=== PATIENT | female | born 1960 | race Caucasian/White ===

== ENCOUNTER 2017-11-04 00:47 | Emergency (ER) | payer MEDICARE, OTHER ==
[~2017-11-04] VITALS: Ht 170.2 cm; Wt 47.0 kg
[2017-11-04 02:08] VITALS: BP 184/113
[2017-11-04] MEDS ORDERED: NO HOME MEDS (14:41)
[2017-11-05] MEDS ORDERED: LISI-600 PO (11:28)
== END 2017-11-04 02:12 | disposition home or self-care (01) ==
LOC: ER 00:48
DX: S60.221A Contusion of right hand, initial encounter (principal); Z88.8 Allergy status to other drugs, medicaments and biological substances; X58.XXXA Exposure to other specified factors, initial encounter; Y93.89 Activity, other specified; Y92.89 Other specified places as the place of occurrence of the external cause; Y99.8 Other external cause status
CPT/HCPCS: 73130; 99284; A4565; A6449

== ENCOUNTER 2022-02-21 08:12 | Emergency (ER) | payer MEDICARE ==
[~2022-02-21] VITALS: Ht 170.2 cm; Wt 40.9 kg
[~2022-02-21 08:12] MED LIST: LISI20TA28 PO
[2022-02-21] MEDS: folic acid 1mg tablet PO SCH ×2 (10:40→19:42)
--- NOTE | 2022-02-21 11:00 | NUR ---
BP 196/128. RN notified provider (Daniele). MD aware, awaiting medical records from [facility].
[2022-02-21 11:13] LABS: HEMOGLOBIN 12.4 g/dl (12.0-16.0); LYMPHOCYTES # (AUTO) 1.1 X10'3 (1.1-4.8); LYMPHOCYTES % (AUTO) 13.9 % (21-51); MEAN CORPUSCULAR VOLUME 90.5 FL (78-98); MONOCYTES # (AUTO) 0.6 X10'3 (0-0.9); MONOCYTES % (AUTO) 7.6 % (2-12)
[2022-02-21 11:14] LABS: BASOPHILS % (AUTO) 0.5 % (0-1); EOSINOPHILS % (AUTO) 0.6 % (0-6); MEAN CORPUSCULAR HEMOGLOBIN 29.5 PG (27.0-31.0); MEAN CORPUSCULAR HGB CONC 32.6 g/dL (33.0-36.5); NEUTROPHILS # (AUTO) 5.9 X10'3 (1.8-7.7); NEUTROPHILS % (AUTO) 77.4 % (42-75); PLATELET COUNT 143 X10'3 (140-440); RED CELL DISTRIBUTION WIDTH 14.9 % (11.5-14.5); WHITE BLOOD COUNT 7.7 X10'3 (4.5-11.0)
[2022-02-21 11:26] LABS: ALANINE AMINOTRANSFERASE 62 U/L (12-78); ALBUMIN 3.4 G/DL (3.4-5.0); ALBUMIN/GLOBULIN RATIO 1.1 (1.1-1.5); ALKALINE PHOSPHATASE 204 IU/L (46-116); ANION GAP 10 (8-16); ASPARTATE AMINO TRANSFERASE 34 U/L (10-37); BILIRUBIN,TOTAL 0.4 MG/DL (0.1-1.0); BLOOD UREA NITROGEN 6 MG/DL (7-18); BUN/CREATININE RATIO 9.5 (6.6-38.0); CALCIUM 8.9 MG/DL (8.5-10.1); CHLORIDE 107 MMOL/L (99-107); CREATININE 0.63 MG/DL (0.40-0.90); ETHANOL < 0.010 GM/DL (0.0-0.010); GLUCOSE 103 MG/DL (70-104); LARGE PLATELETS MODERATE; PLATELET ESTIMATE DECREASED; POTASSIUM 3.1 MMOL/L (3.5-5.1); SODIUM 144 MMOL/L (135-145); TOTAL CARBON DIOXIDE 26.6 MMOL/L (24-32); TOTAL PROTEIN 6.6 G/DL (6.4-8.2); eGFR > 90 ML/MIN
--- NOTE | 2022-02-21 11:26 | NUR ---
pt brought from main ER to [facility], pt was placed in room 24
[2022-02-21] MEDS: thiamine 100mg tablet PO SCH (11:30)
[2022-02-21] MEDS ORDERED: potassium Cl 20 mEq SR tablet PO STA (11:43)
[2022-02-21] MEDS ORDERED: LORazepam 1 MG tablet PO ONE ×2 (13:35→22:55)
[2022-02-21 16:03] LABS: URINE HCG NEGATIVE (NEG)
[2022-02-21 16:09] LABS: URINE AMPHETAMINE SCREEN NEGATIVE (Neg); URINE BARBITUATE SCREEN NEGATIVE (Neg); URINE BENZODIAZEPINES SCREEN NEGATIVE (Neg); URINE CANNABINOID SCREEN POSITIVE (Neg); URINE COCAINE SCREEN NEGATIVE (Neg); URINE METHADONE SCREEN NEGATIVE (Neg); URINE OPIATE SCREEN NEGATIVE (Neg); URINE PHENCYCLIDINE SCREEN NEGATIVE (Neg)
[2022-02-21] MEDS: lisinopril 10 MG tablet PO SCH (17:26)
--- NOTE | 2022-02-21 17:36 | NUR ---
tech took pt vitals, upon vitals pt had a high blood pressure, RN of pt was informed
[2022-02-21 18:37] LABS: CLARITY,URINE CLEAR (Clear); COLOR,URINE YELLOW (Yellow); GLUCOSE, URINE 100 mg/dl (Neg); KETONES,URINE NEGATIVE (Neg); LEUKOCYTE ESTERASE ,URINE NEGATIVE (Neg); NITRITES, URINE NEGATIVE (Neg); OCCULT BLOOD,URINE NEGATIVE (Neg); PH,URINE 7.5 (4.8-8.0); PROTEIN,URINE NEGATIVE (Neg); UA COLLECTION TYPE VOIDED; UROBILINOGEN,URINE 0.2 E.U/dL (0.2-1.0)
[2022-02-21] MEDS ORDERED: ibuprofen tablet 400 MG TABLET PO ONE (19:25)
--- NOTE | 2022-02-21 19:26 | NUR ---
pt c/o pain in legs, notifed of c/o pain and bp 185/90, order for Motrin 600mg po given
[2022-02-21] MEDS ORDERED: ibuprofen 200mg tablet PO ONE (19:30)
--- NOTE | 2022-02-21 20:45 | NUR ---
pt requesting something for pain again, pt advised again that she has recived something, pt again states that I have gave her nothing, unable to reorient pt, pt beligerent, talking to self
--- NOTE | 2022-02-21 21:12 | NUR ---
pt trying to walk to back of unit, no following directions at this time, pt was able to redirect back to bed but still agitated and rocking in bed
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
--- NOTE | 2022-02-21 21:40 | NUR ---
pt spitting and cursing staff at this time.
[2022-02-21] MEDS ORDERED: Melatonin 3mg tablet PO SCH (22:55)
--- NOTE | 2022-02-22 03:40 | NUR ---
Gin tirado in JENNIFER - 02/22/22 at 0342 by KAT Patient is sleeping quietly now. No distress.
[2022-02-22] MEDS ORDERED: nicotine 21mg patch - 24 hr TD ONE (07:40)
[2022-02-22] MEDS: folic acid 1mg tablet PO SCH ×2 (08:00→20:08)
[2022-02-22] MEDS: thiamine 100mg tablet PO SCH (08:00)
[2022-02-22] MEDS: lisinopril 10 MG tablet PO SCH (08:00)
[2022-02-22] MEDS ORDERED: LORazepam 2 mg/ml vial IM ONE (10:05)
--- NOTE | 2022-02-22 14:00 | NUR ---
Patient eloped from ED without notifying staff. Patient was returned by [employer] apporx 30 minutes after leaving facility. No complaints of injuries upon return to ED room 24.
[2022-02-22] MEDS ORDERED: OLANZapine 5mg rapidly disint. tablet PO ONE (16:30)
--- NOTE | 2022-02-22 17:28 | NUR ---
"Playing jelly beans with myself and eating chicken". Patient given Zyprexa 5 mg P.O. Patient is disorganized and delusional. Patient picks up on words a family member of another patient was saying and yells something strange out. Patient pending placement. Continue to monitor.
[2022-02-22] MEDS ORDERED: lisinopril 10 MG tablet PO ONE (17:45)
--- NOTE | 2022-02-22 20:56 | NUR ---
Received pt sitting up eating dinner. PT has disorganized thoughts, yells out random words. Pt took Zestril for hypertension. After dinner, pt laid down and went to sleep.
--- NOTE | 2022-02-23 00:11 | NUR ---
Pt up to the bathroom, requested pain meds, stating motrin nor tylenol work.
--- NOTE | 2022-02-23 02:46 | NUR ---
Pt appears to be sleeping.
--- NOTE | 2022-02-23 05:03 | NUR ---
Pt woke up making demands ie..."I want a cigarette, I want to get up!" Pt given coffee and is resting sitting up in bed.
[2022-02-23] MEDS ORDERED: OLANZapine 2.5MG tablet PO SCH (05:25)
[2022-02-23] MEDS ORDERED: OLANZapine **IM** 10 mg inj. IM ONE (06:30)
--- NOTE | 2022-02-23 06:45 | NUR ---
Patient was yelling out loudly since RN arrival at 0600 am. Patient would not follow directions. Dr. Segundo ordered 5 mg Zyprexa I.M. Security was called and patient allowed RN to give I.M. Patient still yelling out. Continue to monitor.
--- NOTE | 2022-02-23 07:17 | NUR ---
Per report from SHARAN Yeager, patient refused her PO Zyprexa and Shobha showed RN the med cup of 2 zyprexa tabs. Shobha did not "non-administer" medication. Patient did not take it and RN had to give her a 5 mg dose I.M.
--- NOTE | 2022-02-23 08:17 | NUR ---
Patient eating breakfast. No distress observed. Continue to monitor.
--- NOTE | 2022-02-23 10:03 | NUR ---
Patient appears to be sleeping. No distress observed. Continue to monitor.
[2022-02-23] MEDS ORDERED: haloperidol 5mg tablet PO ONE (11:25)
[2022-02-23] MEDS: folic acid 1mg tablet PO SCH ×2 (11:28→20:17)
[2022-02-23] MEDS: thiamine 100mg tablet PO SCH (11:28)
[2022-02-23] MEDS: lisinopril 10 MG tablet PO SCH (11:29)
--- NOTE | 2022-02-23 12:11 | NUR ---
Patient eating lunch. No distress observed. Continue to monitor.
--- NOTE | 2022-02-23 13:07 | NUR ---
Patient screaming for Security. RN asked patient why she needs security. Patient states "To remove you two!" (RN and training RN at nurses station). Continue to monitor.
--- NOTE | 2022-02-23 15:10 | NUR ---
Maxx Lees, psych PA, evaluating patient. No distress observed. Continue to monitor.
[2022-02-23] MEDS ORDERED: potassium Cl 20 mEq SR tablet PO STA (17:28)
[2022-02-23] MEDS ORDERED: potassium Cl 20 mEq SR tablet PO ONE (19:00)
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
--- NOTE | 2022-02-23 19:41 | NUR ---
Dr. Herrera made aware of BP 181/127
[2022-02-23] MEDS ORDERED: olanzapine 10mg tablet PO ONE (20:00)
--- NOTE | 2022-02-23 21:00 | NUR ---
The patient was awakened by an agitated male peer. She sat up in bed and screaming and agitated. She was reassured and she was able to be redirected.
--- NOTE | 2022-02-23 21:52 | NUR ---
The patient is quiet and appears to be sleeping
--- NOTE | 2022-02-23 23:22 | NUR ---
The patient is up to use the bathroom
--- NOTE | 2022-02-24 01:15 | NUR ---
The patient appears to be sleeping
--- NOTE | 2022-02-24 03:04 | NUR ---
The patient appears to be sleeping
--- NOTE | 2022-02-24 05:05 | NUR ---
The patient appeared to have slept well during the night and has periodically gotten up to use the bathroom
--- NOTE | 2022-02-24 06:52 | NUR ---
Patient sleeping on right side. No distress observed. Continue to monitor.
--- NOTE | 2022-02-24 08:09 | NUR ---
Patient eating breakfast. Patient was very pleasant when RN gave her her meal. Continue to monitor.
[2022-02-24] MEDS: lisinopril 10 MG tablet PO SCH (08:38)
[2022-02-24] MEDS: thiamine 100mg tablet PO SCH (08:38)
[2022-02-24] MEDS: folic acid 1mg tablet PO SCH ×2 (08:38→20:12)
--- NOTE | 2022-02-24 10:03 | NUR ---
Patient sleeping in bed. No distress observed. No screaming or inappropriate behavior today. Continue to monitor.
--- NOTE | 2022-02-24 12:22 | NUR ---
Patient eating lunch. No distress observed. Continue to monitor.
--- NOTE | 2022-02-24 14:11 | NUR ---
Patient is quiet and appropriate at this time. Continue to monitor.
--- NOTE | 2022-02-24 16:05 | NUR ---
Patient is calm and then she screams out something obnoxious. Continue to monitor.
[2022-02-24] MEDS ORDERED: acetaminophen 325mg tablet PO PRN (17:30)
[2022-02-24] MEDS ORDERED: ibuprofen tablet 400 MG TABLET PO PRN (17:30)
--- NOTE | 2022-02-24 18:09 | NUR ---
Patient eating dinner. No distress observed. Continue to monitor.
[2022-02-24] MEDS ORDERED: OLANZapine 2.5MG tablet PO ONE (20:05)
--- NOTE | 2022-02-24 20:28 | NUR ---
Patient asking for pain medication. RN offerred patient her Ibuprofen (and her regular meds) and Zyprexa since she appears to be psychotic. Patient asked if this was Morphine and Fentanyl. RN advised patient that the doctor won't prescribe those medications. Patient states "These are not my medications you bitch! You are uninvited to my wedding!" Patient handed the cup of meds back to RN. Continue to monitor.
--- NOTE | 2022-02-24 21:04 | NUR ---
Patient ambulatory to BR, steady gait. Continue to monitor.
--- NOTE | 2022-02-24 22:17 | NUR ---
Patient asked for her medication (that she refused earlier) and RN gave it to her. No distress observed and tool the medication without any problems. Continue to monitor.
--- NOTE | 2022-02-24 22:25 | NUR ---
Patient asked for a sandwich and RN got a sandwich and gave it to the patient. Patient asked if I had any chips. RN said no. Patient responded "You lying bitch." Continue to monitor.
--- NOTE | 2022-02-24 23:05 | NUR ---
Patient still talking to herself and being loud at times. Patient's light is on. Continue to monitor.
--- NOTE | 2022-02-24 23:53 | NUR ---
Patient's light if off and she appears to be sleeping on her right side. No distress observed. Continue to monitor.
--- NOTE | 2022-02-25 00:44 | NUR ---
Patient is awake and crying. RN asks patient why she is crying. Patient yells "You better give me my paing medication!" RN stated "I already gave you your pain med. Patient responds "You are a liar you *ucking bitch!" And then she starts coming after and stops before she is out of the bed. RN backed away and leaving patient alone. Continue to monitor.
--- NOTE | 2022-02-25 01:21 | NUR ---
Patient up with her light on sittng on her bed cussing, angry and talking about staff. Continue to monitor.
--- NOTE | 2022-02-25 02:37 | NUR ---
Patient was up with light on, banging the table with her mouth wash over and over. Then slapping the table nonstop with her hand. Then patient starts to whistle. Then talking loudly. RN called Security to request patient turn off light and go to sleep. Patient has been a little more quiet for about 10 minutes. Continue to monitor.
--- NOTE | 2022-02-25 03:50 | NUR ---
Patient has been yelling, banging, whistling all night. Patient was quiet for 20 minutes from [address] Herrera came to see patient but she had her eyes closed in bed. Emi also awoke another patient who is now been whining loudly for the last 25 minutes. Continue to monitor.
--- NOTE | 2022-02-25 05:07 | NUR ---
Patient laying in bed x 5 minutes. Patient just got back to bed from restroom. Continue to monitor.
--- NOTE | 2022-02-25 05:12 | NUR ---
Patient throwing things off her table. RN told her to stop. Patient yelled "Shut up! I'm not Denominational!" Patient has been difficult all night long.
--- NOTE | 2022-02-25 06:30 | NUR ---
Received report from [facility]. Patient sleeping at this time. Will continue to monitor.
--- NOTE | 2022-02-25 07:10 | NUR ---
Patient up to the bathroom without assistance. Yelling obscenities while in the bathroom approximately 10 minutes. Patient redirected out of the bathroom by MARY Dean and returned to bed. Resting in bed at this time.
[2022-02-25] MEDS: folic acid 1mg tablet PO SCH ×2 (08:18→18:39)
[2022-02-25] MEDS: thiamine 100mg tablet PO SCH (08:18)
[2022-02-25] MEDS: lisinopril 10 MG tablet PO SCH (08:18)
--- NOTE | 2022-02-25 08:30 | NUR ---
Patient ate breakfast then requested wash cloths to provide own personal care in the bathroom and applied lotion all over body. Patient is confused and is cooperative at this time. Patient resting in bed.
--- NOTE | 2022-02-25 11:00 | NUR ---
Patient was down looking under the bed for "buttons to raise the head." Patient was then standing facing the wall on her bed and saw the red light above her bed and said "I'm trying to turn the cameras off. Please turn the cameras off." Assisted the patient back to her bed and she laid down on her bed. Attempted to reorient the patient to her location. Patient is alert & confused. Pleasant and cooperative at this time. Resting in bed at this time. Will continue to monitor.
--- NOTE | 2022-02-25 12:30 | NUR ---
Patient received her lunch and ate 100% and drank all of the fluids on her lunch tray. Patient talkative at this time. Confused but remains pleasant and cooperative. Will continue to monitor.
--- NOTE | 2022-02-25 14:00 | NUR ---
Received telephone call from [facility] and completed Nurse to Nurse Assessment of current status. [facility] returned call to inform they would accept patient but are requesting 2nd COVID Rapid Test be done as soon as possible. Explained the procedure to the patient and informed her I would be doing a 2nd COVID Test to get her transferred to a facility as soon as possible. Patient started yelling obscenities at this Emergency Management Consultant loudly and using very foul words. Two other RN's went over to attempt to collect COVID Swab for the patient but she again adamantly refused to all 3 RN's. Patient is pending placement and will give patient time to settle back down then will need to call Security to our department to collect COVID Rapid Test.
--- NOTE | 2022-02-25 14:45 | NUR ---
Patient still extremely upset and is in the bathroom yelling many foul words as well and exited the bathroom and continued yelling while sitting in her bed for approximately 1/2 hour. Patient settled down and was reading a magazine and continued to talk to herself but much more manageable at this time.
--- NOTE | 2022-02-25 16:20 | NUR ---
Fredo, Painter Chassis made rounds checking on all of the patients and was asked by this Grease Cup Filler if he could talk this patient into submitting to a 2nd COVID Test in a few minutes. Fredo spoke with the patient and she was showing pictures in her magazine, then he asked her if she would consent to a COVID test at this time. Patient immediately answered "Yes," and a COVID swab was collected from bilateral nares at this time and transported to the Lab at 1620. Patient remains calm and cooperative at this time. Will continue to monitor.
--- NOTE | 2022-02-25 16:43 | NUR ---
PT TRIED TO ESCAPE FROM OVERFLOW ,CALLED THE PT TO COME BACK PT OPENED THE DOOR AND WENT OUTSIDE JOHN BUSINESS SUPPORT COORDINATOR CAME OUTSIDE AND HELD THE PT ARM AND MADE HER TO STOP ESCAPING THE PREMISIS ,SECURITY ALERTED BY ER DIRECTOR NEIL ,WITH THE HELP OF GLASS CUTTER HELPER PT WAS BROUGHT BACK TO ROOM SAFELY.
--- NOTE | 2022-02-25 17:18 | NUR ---
Patient up to the bathroom at this time and starts yelling each time she goes in the bathroom and yells obscenities using multiple foul words each time she uses the bathroom today. Patient can be overheard blaming others for not receiving her dinner and speaks many expletives while in the bathroom. Delusional behavior. Patient is cooperative and asks for coffee constantly throughout the day then forgets what she is asking for. Patient out of the bathroom and resting in bed at this time. Patient is still talking to herself.
[2022-02-25] MEDS ORDERED: LORazepam 1 MG tablet PO ONE (18:20)
[2022-02-25 19:03] VITALS: BP 181/115
== END 2022-02-25 20:44 | disposition left against medical advice (07) ==
LOC: ER 08:12
DX: Z73.6 Limitation of activities due to disability (principal); Z20.822 Contact with and (suspected) exposure to COVID-19; E87.6 Hypokalemia; I10 Essential (primary) hypertension; F29 Unspecified psychosis not due to a substance or known physiological condition; G43.909 Migraine, unspecified, not intractable, without status migrainosus; G89.29 Other chronic pain; M54.50 Low back pain, unspecified; Z88.4 Allergy status to anesthetic agent
CPT/HCPCS: 36415; 80053; 80305; 80320; 81003; 81025; 85008; 85025; 87811; 96372; 99285; J2060

== ENCOUNTER 2022-10-07 01:45 | Emergency (ER) | payer MEDICARE, MEDICAID ==
[~2022-10-07 01:45] MED LIST changes: +AMOX-117 PO; +TRAM50TA2 PO
--- NOTE | 2022-10-07 03:55 | NUR ---
Patient to shower area outside to shower herself d/t being covered in feces.
--- NOTE | 2022-10-07 04:28 | NUR ---
Patient brought into triage room. When asked why patient was here she proceeded to eat candy bar and states "i already told you". Informed patient that she was brought in by EMS and may have told them her complaint, but I as the triage nurses needed to do an initial assessment including hearing from her the reason why she called 911 to be brought to the ED. Patient then stated "Get me a glass of milk and then ill tell you why i am here". Patient refused to go on with triage and would not speak to triage nurse and kept repeating "i need milk". Patient then instructed to leave triage room and escorted out of lobby by security.
== END 2022-10-07 04:35 | disposition left against medical advice (07) ==
LOC: ER 01:45
DX: Z00.8 Encounter for other general examination (principal); Z53.21 Procedure and treatment not carried out due to patient leaving prior to being seen by health care provider
CPT/HCPCS: 99281